=== PATIENT | female | born 1960 | race Caucasian/White ===

== ENCOUNTER 2021-03-10 12:52 | Emergency (ER) | payer BC, OTHER ==
[2021-03-10 14:23] LABS: HEMOGLOBIN 14.7 gm/dl (12.3-15.3); RED BLOOD COUNT 4.61 M/UL (4.00-5.10); WHITE BLOOD COUNT 6.6 K/UL (4.5-11.0)
[2021-03-10 14:59] LABS: BUN/CREATININE RATIO 13 (0-10)
== END 2021-03-10 22:30 | disposition short-term general hospital (02) ==
LOC: ER1 12:52
PROVIDERS: Physician Assistant
DX: H53.8 Other visual disturbances (principal); H61.22 Impacted cerumen, left ear
CPT/HCPCS: 70450; 80053; 81001; 82550; 82553; 83874; 84484; 85025; 85652; 86140; 93005; 99285

== ENCOUNTER 2021-05-15 12:57 | Emergency (ER) | payer BC ==
[~2021-05-15] VITALS: Ht 167.6 cm; Wt 67.6 kg
[2021-05-15 13:45] LABS: HEMOGLOBIN 13.7 gm/dl (12.3-15.3); RED BLOOD COUNT 4.5 M/UL (4.00-5.10); WHITE BLOOD COUNT 4.1 K/UL (4.5-11.0)
[2021-05-15] MEDS ORDERED: ZOFRAN ODT 4 MG4 MG GT (15:07)
[2021-05-15] MEDS ORDERED: ASPIRIN CHEWABL81 MG PO (15:07)
== END 2021-05-15 17:05 | disposition home or self-care (01) ==
LOC: ER1 12:57
PROVIDERS: Physician Assistant
DX: Z23 Encounter for immunization (principal); U07.1 COVID-19; Z86.73 Personal history of transient ischemic attack (TIA), and cerebral infarction without residual deficits
CPT/HCPCS: 80053; 85025; 99284; J7030; M0243

== ENCOUNTER 2021-06-19 16:19 | Emergency (ER) | payer BC, OTHER ==
[~2021-06-19 16:19] MED LIST: ASPIRIN CHEWABL81 MG PO; ZOFRAN ODT 4 MG4 MG GT
[2021-06-19 18:47] LABS: HEMOGLOBIN 12.3 gm/dl (12.3-15.3); RED BLOOD COUNT 3.92 M/UL (4.00-5.10); WHITE BLOOD COUNT 6.3 K/UL (4.5-11.0)
[2021-06-19 19:16] LABS: BUN/CREATININE RATIO 18 (0-10)
[2021-06-19] MEDS ORDERED: AUGMENTIN 875-1 EACH PO (20:26)
== END 2021-06-19 20:35 | disposition home or self-care (01) ==
LOC: ER1 16:19
PROVIDERS: Family Medicine
DX: J32.9 Chronic sinusitis, unspecified (principal); Z86.73 Personal history of transient ischemic attack (TIA), and cerebral infarction without residual deficits; Z79.01 Long term (current) use of anticoagulants
CPT/HCPCS: 70450; 70496; 70498; 71045; 80053; 82550; 82553; 82962; 83874; 83880; 84439; 84443; 84484; 85025; 93005; 99285; Q9967